=== PATIENT | male | born 1990 | race Caucasian/White ===

== ENCOUNTER 2024-10-26 05:48 | Emergency (ER) | payer MEDICAID, SELFPAY ==
--- NOTE | ~2024-10-26 | XR_ITS ---
EXAMINATION: XR WRIST 1-2 VIEWS LEFT XR HAND 1-2 VIEWS LEFT CLINICAL INFORMATION: injury COMPARISON: None TECHNIQUE: PA, lateral, and oblique views of the left hand and wrist. FINDINGS: Normal alignment. No fracture or erosions. Joint spaces are preserved. No abnormal soft tissue calcification or metallic foreign body XR/XR wrist LT 2V IMPRESSION: No acute fracture or dislocation of the wrist. No acute fracture or dislocation of the hand. Electronically signed by: Vickie Smart MD 10/26/2024 07:59 AM EDT
--- NOTE | ~2024-10-26 | XR_ITS ---
EXAMINATION: XR WRIST 1-2 VIEWS LEFT XR HAND 1-2 VIEWS LEFT CLINICAL INFORMATION: injury COMPARISON: None TECHNIQUE: PA, lateral, and oblique views of the left hand and wrist. FINDINGS: Normal alignment. No fracture or erosions. Joint spaces are preserved. No abnormal soft tissue calcification or metallic foreign body XR/XR hand LT 2V IMPRESSION: No acute fracture or dislocation of the wrist. No acute fracture or dislocation of the hand. Electronically signed by: Vickie Smart MD 10/26/2024 07:59 AM EDT
[2024-10-26 06:28] VITALS: BP 131/75; PULSE 55; RESP 18; TEMP 36.7; O2SAT 97; BMI 28.3
[2024-10-26 06:39] VITALS: BP 131/75; PULSE 56; RESP 16; TEMP 36.7; O2SAT 97
--- OUTSIDE RECORDS SUMMARY | 2024-10-26 07:33 | XMS_ITS | Encounter Summary ---
Author Organization [facility] Address [address] [place] [address] Care Team Providers Care It Instructor Name Role Phone Janay Yun NP Primary Care Provider [phone] Encounter Details Date Type Department Care Team (Late st Contact Info) Description 11/19/2018 Orders Only [facility] [address] [place] [address] [phone] Jonnie Truong PA [address] [place] [address] Social History Tobacco Use Types Packs/Day Years Used Date Smoking Tobacco: Never Smokeless Tobacco: Never Sex and Gender Information Value Date Recorded Sex Assigned at Not on file Legal Sex Male 1:22 AM EDT Gender Identity Not on file Sexual Orientation Not on file documented as of this encounter Progress Notes * Jonnie Truong PA - 11/20/2018 7:04 AM EDT See [employer] message 11/20/2018 for additional details documented in this encounter Plan of Treatment Not on file documented as of this encounter Procedures * Due to [place] state law, this organization might not be sharing negative HIV tests. Procedure Name Priority Date/Time Associated Diagnosis Comments CBC INCLUDES DIFFERENTIAL AND PLATELET COUNT Routine 11/19/2018 11:56 AM EDT Mid back pain on left side BASIC METABOLIC PANEL WITH (GFR) Routine 11/19/2018 11:56 AM EDT Mid back pain on left side documented in this encounter Results * Due to [place] state law, this organization might not be sharing negative HIV tests. * CBC INCLUDES DIFFERENTIAL AND PLATELET COUNT (11/19/2018 11:56 AM EDT) WBC 4.2 3.8 - 10.8 Thousand/u L [facility] RBC 5.03 4.20 - 5.80 Million/uL [facility] Hemoglobin 16.0 13.2 - 17.1 g/dL [facility] Hematocrit 46.1 38.5 - 50.0 % [facility] MCV 91.7 80.0 - 100.0 fL [facility] MCH 31.8 27.0 - 33.0 pg [facility] MCHC 34.7 32.0 - 36.0 g/dL [facility] RDW 12.1 11.0 - 15.0 % [facility] PLT 224 140 - 400 Thousand/u L [facility] MPV 11.3 7.5 - 12.5 fL [facility] Neutrophils # 2503 1500 - 7800 cells/uL [facility] Lymphocytes # 1189 850 - 3900 cells/uL [facility] Monocytes # 466 200 - 950 cells/uL [facility] Eosinophils # 21 15 - 500 cells/uL [facility] Basophils # 21 0 - 200 cells/uL [facility] Neutrophils % 59.6 % [facility] Lymphocytes % 28.3 % [facility] Monocytes % 11.1 % [facility] Eosinophils % 0.5 % [facility] Basophils % 0.5 % [facility] 11/19/2018 11:5 6 AM EDT 11/19/2018 1:34 PM EDT Narrative Resulting Agency Comment [id number] us [facility] SAME DAY RESULT Final Result [facility] [address] [place] [address] * BASIC METABOLIC PANEL WITH (GFR) (11/19/2018 11:56 AM EDT) Glucose 81 65 - 99 mg/dL [facility] Comment:Fasting reference in terval Urea Nitrogen Blood (BUN) 10 7 - 25 mg/dL [facility] Creatinine 1.04 0.60 - 1.35 mg/dL [facility] EGFR 98 > OR = 60 mL/min/1. 73m2 [facility] GFR () 114 > OR = 60 mL/min/1. 73m2 [facility] BUN/Creatinine Ratio NOT APPLICABLE 6 - 22 (calc) [facility] Sodium 142 135 - 146 mmol/L [facility] Potassium 4.4 3.5 - 5.3 mmol/L [facility] Chloride 105 98 - 110 mmol/L [facility] Carbon dioxide 26 20 - 32 mmol/L [facility] Calcium 9.8 8.6 - 10.3 mg/dL [facility] 11/19/2018 11:5 6 AM EDT 11/19/2018 1:34 PM EDT Narrative [facility] - 11/19/2018 8:04 PM EDT Please note that this estimated GFR does not include an adjustment for the patient's height or weight, and can therefore, be viewed as reliable only for patients with heights between 60 and 72 . More precise quantification using a 24-hour urine sample or height-based algorithm is recommended for patients outside of this range of height and for those individuals with more precise needs for GFR calculation. Resulting Agency Comment [id number] [facility] Final Result [facility] [address] [place] [address] documented in this encounter Visit Diagnoses Diagnosis Mid back pain on left side Pain in thoracic spine documented in this encounter Care Teams It Instructor Relationship Specialty Start Date End Date Janay Yun NP [address] [place] [id number] PCP - General Internal Medicine 11/09/18 documented as of this encounter
--- OUTSIDE RECORDS SUMMARY | 2024-10-26 07:33 | XMS_ITS | Clinical Summary ---
Author Organization [employer] Address [address] [facility] [address] [place] [address] Care Team Providers Care Dining Room Hostess Name Role Phone Unavailable Primary Care Provider Unavailabl e Social History Tobacco Use Types Packs/Day Years Used Date Smoking Tobacco: Never Assessed Sex and Gender Information Value Date Recorded Sex Assigned at Not on file Legal Sex Male 1:46 PM EST Gender Identity Not on file Sexual Orientation Not on file Plan of Treatment Health Maintenance Due Date Last Done Comments Depression Screening 1991 HIV Screening 1991 SDOH Screening 1991 Disability Screening 1991 Alcohol/Substance Use Screening 2003 Tobacco Screening 2003 Family Planning (PISQ) 2006 HPV Vaccines (1 - Male 3-dos e series) 2006 Hepatitis C Screening 2009 DTaP/Tdap/Td Vaccines (1 - Tdap) 2010 Hepatitis B Vaccines (1 of 3 - 19+ 3-dose series) 2010 COVID-19 Vaccine (1 - 2023-2 5 season) 2023 Influenza Vaccine (#1) 2024 Zoster Vaccines (1 of 2) 2041 RSV Patients and Pa tients Aged 60 years or older (1 - 1-dose 75+ series) 2066 HIB Vaccines Aged Out No longer eligi ble based on patient's age to complete this topic Hepatitis A Vaccines Aged Out No long er eligible based on patient's age to complete this topic IPV Vaccines Aged Out No longer eligi ble based on patient's age to complete this topic Meningococcal B Vaccine Aged Out No l onger eligible based on patient's age to complete this topic Meningococcal Vaccine Aged Out No santos ryne eligible based on patient's age to complete this topic Pneumococcal Vaccine: Pediat rics (0 to 5 Years) and At-Risk Patients (6 to 49) Years Aged Out No longer eligible b ased on patient's age to complete this topic RSV under 20 months Aged Out No longe r eligible based on patient's age to complete this topic Rotavirus Vaccines Aged Out No longer eligible based on patient's age to complete this topic
--- NOTE | 2024-10-26 07:56 | ED_ITS ---
HPI - Extremity Problem General Chief complaint: Extremity Injury, Upper Stated complaint: injured hand Time Seen by Provider: 10/26/24 06:21 Source: patient, RN notes reviewed and old records reviewed Mode of arrival: ambulatory Limitations: no limitations History of Present Illness ED Provider: Abelardo FORDE Narrative: Patient is a 34 y/o male with no pertinent history who presents to the ED with left wrist pain and stiffness since last night. He is right hand dominant. He states he was working out at a home gym punching a punching bag. He hit the bag awkwardly which preceded the wrist pain. This occurred around 7-8pm. He described the pain as stiffness and states it is painful to move. He applied ice to the wrist, took excedrin for pain, and wore a wrist splint overnight. Denies past injury to wrist. Related Data Allergies Allergy/AdvReac Type Severity Reaction Status Date / Time No Known Allergies Allergy Verified 10/26/24 06:33 Review of Systems Review of Systems: Yes all other systems are reviewed and are negative Constitutional: Constitutional: Reports as per [facility] Social History Social History Smoked in Last 30 Days: No Use of substances other than those prescribed or required for medical reasons: Yes Substance Use Type: Marijuana Substance Use Frequency: Occasionally Advance Directives: No Advance Directives Information Provided: Yes Physical Exam Vital Signs: Vital Signs: Last Vital Signs Temp 97.2 F 10/26/24 08:48 Pulse 58 10/26/24 08:48 Resp 18 10/26/24 08:48 BP 132/72 10/26/24 08:48 Pulse Ox 100 10/26/24 08:48 O2 Del Method Room Air 10/26/24 08:48 BMI result Body Mass Index 28.3 Vital signs have been reviewed and appear to be correct. Blood pressure normal. Heart rate normal. Respiratory rate normal. Temperature normal. Oxygen saturation normal. Const: General: cooperative, healthy appearing and no acute distress Orientation/consciousness: oriented to person, oriented to place, oriented to time and patient oriented x3 Limitations: no limitations HEENT: Head: Yes normocephalic and Yes atraumatic Ears: external ears normal General nose exam: Normal external nose present Face and sinus: Yes face symmetric Mouth: oropharynx normal and moist mucous membranes Throat: Yes uvula midline Eyes: Pupils: Equal, round and reactive pupils present Neck: Neck: Yes normal visual inspection and Yes supple Resp: Effort & Inspection: normal respiratory effort and able to speak in complete sentences Auscultation: clear to auscultation bilaterally Cardio: Rate: regular rate Rhythm: regular rhythm Heart sounds: S1 normal heart sound present and S2 normal heart sound present GI: Palpation (GI): Soft to palpation and nontender Auscultation: normoactive bowel sounds : General: Yes no CVA tenderness Back/Spine/Pelvis: Back: no CVA tenderness Skin: General skin exam: elasticity normal and turgor normal Neuro: General: oriented to person, oriented to place, oriented to time, patient oriented x3, moves all extremities, no focal motor deficits and CN's II- XI intact bilaterally Cranial nerves: Yes Equal, round and reactive pupils pr esent Cognition (Neuro): normal cognition Extrem: General: Yes full ROM, Yes no pedal edema and Yes no calf tenderness Left upper extremity: wrist (appearance normal, full ROM, no tenderness to palpation) and hand Details: normal to inspection, neuromotor exam normal, neurosensory exam normal, tenderness Location: of the dorsal hand (over 1st and 2nd metacarpals), vascular exam Details: radial pulse present and normal capillary refill and normal ROM of fingers Psych: Mental Status: mental status grossly normal Affect: normal affect Thought process: Normal thought process present Medical Decision Making Medical Decision Making MDM Narrative: Patient is a 34 y/o male with no pertinent history who presents to the ED with left wrist pain and stiffness since last night. Discharge Plan Discharge Clinical Impression: Sprain and strain of left wrist Patient Disposition: Home, Self-Care Instructions: Wrist Injury (ED), P.R.I.C.E. Treatment (ED), Cold Compress or Soak (ED) Additional Instructions: You have been evaluated in the emergency department today for wrist pain. Your evaluation did not find evidence of medical conditions requiring emergent intervention at this time. We have provided a splint for you to use while your wrist heals. Please rest, ice, and elevate your wrist, and resume normal activities as tolerated. We recommend you take 600mg ibuprofen every 6 hours or 650mg Tylenol every 6 hours as needed for pain. If needed you can alternate these medications as they take 1 medication every 3 hours. For instance at noon take ibuprofen, then at 3:00 p.m. take Tylenol, then at 6:00 p.m. take ibuprofen. Please schedule an appointment for follow-up with your primary care provider this week. Return to the emergency department if you experience worsening pain, numbness, tingling, change of color in your fingers/hand, or any other concerning symptoms. If your symptoms persist beyond the next 1-2 weeks, follow up with orthopedics. Referrals: [facility] [place] [facility] Surgeons [Provider Group] Stand Alone Forms: Work/School Release Interventions: ED Discharge Assessment Last Done: 10/26/24 08:48 Discharge Date/Time: 10/26/24 08:48 Print Language: Vietnamese
[2024-10-26 08:43] VITALS: BP 132/72; PULSE 58; RESP 18; TEMP 36.2; O2SAT 100
[2024-10-26 08:48] VITALS: BP 132/72; PULSE 58; RESP 18; TEMP 36.2; O2SAT 100
== END 2024-10-26 08:48 | disposition home or self-care (01) ==
PROVIDERS: Emergency Provider Emergency Medicine
DX: S63.502A Unspecified sprain of left wrist, initial encounter (principal); W22.8XXA Striking against or struck by other objects, initial encounter; Y93.B9 Activity, other involving muscle strengthening exercises; Y92.9 Unspecified place or not applicable; Y99.9 Unspecified external cause status; M25.532 Pain in left wrist
CPT/HCPCS: 73100; 73120; 99283; 99284

== ENCOUNTER → 2024-10-26 05:57 | Outpatient (BNV) | payer SELFPAY | PROVIDERS: Emergency Provider Emergency Medicine; Visit Provider Radiology Body Imaging | DX: S69.91XA Unspecified injury of right wrist, hand and finger(s), initial encounter (principal) | CPT/HCPCS: 73100; 73120 ==